=== PATIENT | female | born 1990 | race Two or more races ===

== ENCOUNTER 2022-07-13 17:38 | Emergency (ER) | payer OTHER ==
[~2022-07-13] VITALS: Ht 165.1 cm; Wt 107.0 kg
[2022-07-13 18:51] VITALS: BP 124/77
[2022-07-13] MEDS ORDERED: TETANUS-DIPTH-ACEL PERTUSSIS 0.5ML SYR Tdap IM ONE (19:45)
== END 2022-07-13 20:06 | disposition home or self-care (01) ==
LOC: ER 17:38
DX: S61.012A Laceration without foreign body of left thumb without damage to nail, initial encounter (principal); W26.0XXA Contact with knife, initial encounter; Y93.89 Activity, other specified; Y92.89 Other specified places as the place of occurrence of the external cause; Y99.8 Other external cause status
CPT/HCPCS: 12001; 90471; 90715

== ENCOUNTER 2023-05-01 08:55 | Emergency (ER) | payer OTHER ==
[~2023-05-01] VITALS: Ht 162.6 cm; Wt 107.3 kg
[2023-05-01 10:23] VITALS: BP 123/71; PULSE 74; RESP 18; TEMP 98.2; O2SAT 98
== END 2023-05-01 10:38 | disposition home or self-care (01) ==
LOC: ER 08:55
DX: R03.0 Elevated blood-pressure reading, without diagnosis of hypertension (principal)

== ENCOUNTER 2024-12-13 13:41 | Emergency (ER) | payer OTHER | END 2024-12-13 15:14 | disposition left against medical advice (07) | LOC: ER 13:41 | DX: R10.9 Unspecified abdominal pain (principal); Z53.21 Procedure and treatment not carried out due to patient leaving prior to being seen by health care provider ==